=== PATIENT | male | born 1960 | race Caucasian/White ===

== ENCOUNTER 2017-02-21 11:05 | Emergency (ER) | payer BC, OTHER ==
[2017-02-21] MEDS ORDERED: Aspirin 81 MG Tab.Chew ONE (11:30)
[2017-02-21] MEDS ORDERED: Nitroglycerin 0.4 MG Tab.SL ONE (11:31)
[2017-02-21 11:32] VITALS: BP 179/106
[2017-02-21] MEDS: Nitroglycerin 0.4 MG Tab.SL SL PRN ×3 (11:42→11:53)
[2017-02-21] MEDS ORDERED: GI Cocktail 45 ML BOTTLE ONE (11:54)
[2017-02-21] MEDS ORDERED: GI Cocktail 45 ML BOTTLE PO ONE (12:04)
[2017-02-21] MEDS ORDERED: Morphine 4 MG/ML Syringe IVPUSH ONE (12:05)
[2017-02-21] MEDS ORDERED: Ondansetron 4 MG/2 ML SDV IVPUSH ONE (12:05)
--- NOTE | 2017-02-21 12:12 | EDM.PDOC ---
ED HISTORY OF PRESENT ILLNESS - General Chief Complaint: Chest Pain Stated Complaint: MID STERNAL CHEST PAIN Time Seen by Provider: 02/21/17 11:16 Source of Information: Reports: Patient History Limitations: Reports: No limitations - History of Present Illness INITIAL COMMENTS - FREE TEXT/NARRATIVE: Patient presents with chest pain that started 18 hours ago (about 1800 last evening). It was achy and about 5-6/10. It was constant. He went to bed at 2300 and slept til midnight when pain worsened so he got up and sat in recliner , this made pain better for an hour. He went back to bed and pain. Slept until 0700 and awakened with worse pain. - Related Data Allergies/ADRs: Allergies Allergy/AdvReac Type Severity Reaction Status Date / Time codeine Allergy Nausea Verified 02/21/17 11:50 Home Meds: Home Meds Colchicine 1 tab PO BID 02/21/17 [History] Lisinopril/Hydrochlorothiazide [Lisinopril-Hctz 10-12.5 mg Tab] 1 tab PO DAILY 02/21/17 [History] RABEprazole Sodium [Aciphex] 1 tab PO DAILY 02/21/17 [History] ED ROS GENERAL - Review of Systems Review Of Systems: See Below Constitutional: Denies: fever, chills HEENT: Reports: No symptoms Respiratory: Denies: Shortness of Breath, Wheezing, Cough Cardiovascular: Reports: Chest pain GI/Abdominal: Denies: Abdominal pain, Diarrhea, Vomiting : Reports: no symptoms Musculoskeletal: Denies: neck pain, shoulder pain, arm pain, back pain Skin: Denies: cyanosis, jaundice, mottled, pallor, diaphoresis Neurological: Denies: Confusion, Dizziness, Headache, Syncope, Trouble Speaking , Difficulty Walking Psychiatric: Denies: Agitation, Anxiety, Confusion Hematologic/Lymphatic: Reports: other (hemoglobin runs high but tests negative for hemochromatosis) ED EXAM, GENERAL - Physical Exam Exam: See Below Exam Limited By: No limitations General Appearance: alert, WD/WN, no apparent distress Eye Exam: bilateral eye: EOMI, normal inspection, PERRL Ears: normal external exam, hearing grossly normal Nose: normal inspection Throat/Mouth: Normal lips, Normal voice, No airway compromise Head: atraumatic, normocephalic Neck: normal inspection, supple, non-tender, full range of motion Respiratory/Chest: no respiratory distress, lungs clear, normal breath sounds, no accessory muscle use Cardiovascular: normal peripheral pulses, regular rate, rhythm, no murmur Peripheral Pulses: 2+: carotid (L), carotid (R), radial (L), radial (R), posterior tibial (L), posterior tibial (R) GI/Abdominal: normal bowel sounds, soft, non tender, no organomegaly, no distention Extremities: normal inspection, normal range of motion, non-tender, no pedal edema Neurological: alert, oriented, normal cognition, no motor/sensory deficits Psychiatric: normal affect, normal mood Skin Exam: Warm, Dry, Intact, Normal color Course - Vital Signs Last Recorded V/S: Last Vital Signs Temp 96.7 F 02/21/17 11:14 Pulse 80 02/21/17 11:14 Resp 13 02/21/17 11:14 BP 179/106 H 02/21/17 11:14 Pulse Ox 97 02/21/17 11:14 - Orders/Labs/Meds Orders: Active Orders 24 hr Category Date Time Status BMP [BASIC METABOLIC PANEL,BMP] [CHEM] Stat Lab 02/21/17 11:40 Ordered TROPONIN I [CHEM] Stat Lab 02/21/17 11:40 Ordered Morphine Med 02/21/17 12:05 Once 4 mg IVPUSH ONETIME ONE Ondansetron [Zofran] Med 02/21/17 12:05 Once 4 mg IVPUSH ONETIME ONE Labs: Laboratory Tests 02/21/17 Range/Units 11:38 WBC 11.1 H (5.0-10.0) 10^3/uL RBC 5.90 (4.50-6.00) 10^6/uL Hgb 16.2 (13.0-17.0) g/dL Hct 49.1 (40.0-52.0) % MCV 83.2 (82.0-92.0) fL MCH 27.5 (27.0-31.0) pg MCHC 33.0 (32.0-36.0) g/dL RDW 13.2 (11.5-14.5) % Plt Count 184 (150-300) 10^3/uL MPV 8.6 (7.4-10.4) fL Neut % (Auto) 91.1 H (50.0-70.0) % Lymph % (Auto) 7.7 L (20.0-40.0) % [place] % (Auto) 0.7 L (2.0-8.0) % Eos % (Auto) 0.1 L (1.0-3.0) % Baso % (Auto) 0.4 (0.0-1.0) % Neut # (Auto) 10.1 H (2.5-7.0) 10^3/uL Lymph # (Auto) 0.9 L (1.0-4.0) 10^3/uL [place] # (Auto) 0.1 (0.1-0.8) 10^3/uL Eos # (Auto) 0.0 L (0.1-0.3) 10^3/uL Baso # (Auto) 0.0 (0.0-0.1) 10^3/uL Meds: Medications Discontinued Medications Generic Name Dose Route Start Last Admin Trade Name [place] PRN Reason Stop Dose Admin Al Hydroxide/Mg Hydroxide Confirm 02/21/17 11:54 Gi Cocktail Administered 02/21/17 11:55 Dose 50 ml .ROUTE .STK-MED ONE Al Hydroxide/Mg Hydroxide 45 ml 02/21/17 12:04 Gi Cocktail PO 02/21/17 12:05 ONETIME ONE Aspirin Confirm 02/21/17 11:30 Aspirin Administered 02/21/17 11:31 Dose 324 mg .ROUTE .STK-MED ONE Nitroglycerin Confirm 02/21/17 11:31 Nitrostat Administered 02/21/17 11:32 Dose 0.4 mg .ROUTE .STK-MED ONE - Re-Assessments/Exams Free Text/Narrative Re-Assessment/Exam: 02/21/17 12:06 Pt given ASA 81 x 4. EKG shows ST elevation concerning for STEMI but not quite at that level per Rhina RODRIGUEZ. Contacting [facility] where pt had his angiogram a year ago. Pain at 7/10 [address] nitro x 3 pain is 8/10. Having nausea. GI cocktail, no help. Morphine 4 mg brought pain from 8/10 down to 5/10, but after 40 minutes it started going up again. He was given morphine 2 mg just before leaving on med flight. Pain down to 3/10 at discharge. 02/21/17 13:07 Trop is 0.63, Dr. Arceo ([facility]) accepted for transfer and is sending flight crew. 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) Condition: good Clinical Impression: STEMI (ST elevation myocardial infarction) Qualifiers: Involved coronary artery: unspecified coronary artery Qualified Code(s): I21.3 - ST elevation (STEMI) myocardial infarction of unspecified site Chest pain Qualifiers: Chest pain type: unspecified Qualified Code(s): R07.9 - Chest pain, unspecified Forms: ED Department Discharge - My Orders Last 24 Hours: My Active Orders 02/21/17 11:40 BMP [BASIC METABOLIC PANEL,BMP] [CHEM] Stat TROPONIN I [CHEM] Stat 02/21/17 12:05 Morphine 4 mg IVPUSH ONETIME ONE Ondansetron [Zofran] 4 mg IVPUSH ONETIME ONE - Assessment/Plan Last 24 Hours: My Active Orders 02/21/17 11:40 BMP [BASIC METABOLIC PANEL,BMP] [CHEM] Stat TROPONIN I [CHEM] Stat 02/21/17 12:05 Morphine 4 mg IVPUSH ONETIME ONE Ondansetron [Zofran] 4 mg IVPUSH ONETIME ONE
[2017-02-21 12:16] LABS: CHLORIDE,CL 103 mmol/L (98-115); SODIUM,NA 141 mmol/L (136-145)
[2017-02-21] MEDS ORDERED: Aspirin 81 MG Tab.Chew PO ONE (12:26)
[2017-02-21] MEDS ORDERED: Heparin Sodium 5,000 Units/ML Vial IV ONE (12:28)
[2017-02-21] MEDS ORDERED: Morphine 2 MG/ML Syringe IVPUSH ONE (13:23)
[2017-02-21] MEDS ORDERED: Morphine 2 MG/ML Syringe ONE (13:24)
== END 2017-02-21 13:35 ==
LOC: KA.ED 11:05
DX: I21.3 ST elevation (STEMI) myocardial infarction of unspecified site (principal); Z88.8 Allergy status to other drugs, medicaments and biological substances; Z79.899 Other long term (current) drug therapy
CPT/HCPCS: 36415; 80048; 84484; 85025; 96374; 96375; 96376; 99285; A9270; J1644; J2270; J2405; 93005